=== PATIENT | female | born 1935 | race Caucasian/White ===

== ENCOUNTER 2019-09-19 13:02 | Observation (INO) | payer OTHER, SELFPAY ==
[2019-09-19] VITALS (8 sets, daily range): BP systolic 108–141; BP diastolic 54–83; PULSE 50–96; RESP 14–20; TEMP 37.3–38.7; O2SAT 93–98; BMI 29.0
--- NOTE | ~2019-09-19 | CT_ITS ---
EXAMINATION: CT brain wo con EXAM DATE: 09/19/2019 14:10 INDICATION: Altered mental status. Change in mental status. TECHNIQUE: Spiral CT of the head was performed without contrast. Axial, coronal and sagittal images were reviewed. The dose-length product (DLP) for this examination was 529.67 mGy-cm. The exposure w as tailored according to patient size, and iterative reconstruction (ASIR) was used as additional dos e reduction technique. Comparison is made to prior examination from 07/10/2018. FINDINGS: There is no acute intraparenchymal hemorrhage. No evidence of intraparenchymal brain mass lesion. No evidence of acute infarction. Please note that initial head CT has limited sensitivity f or small or acute infarctions. There is moderate periventricular and subcortical hypodensity, nonspec ific but probably related to small vessel ischemic disease. There is moderate prominence of the sul ci and ventricles related to cerebral atrophy. There is intracranial carotid arteriosclerosis. The re are no extra-axial collections. There is no mass effect or midline shift. The orbits are unremar kable. Soft tissue is unremarkable. The visualized sinuses and mastoid air cells are well aerated. IMPRESSION: 1. No acute intracranial findings. 2. Chronic age related findings. Reviewed, dictated and finalized at location B. NICIAN
--- NOTE | ~2019-09-19 | XR_ITS ---
EXAMINATION: XR chest 2V DATE: 09/19/2019 13:44 INDICATION: Fever TECHNIQUE: frontal and lateral views of the chest were obtained. COMPARISON: Chest radiograph dated 07/10/2018 FINDINGS: Skinfold projects over the lateral left lower lung zone. Elevation of the right hemidiaphragm. No foc al airspace opacities, pulmonary edema, pleural effusion or pneumothorax. The cardiomediastinal silho uette is normal. Cholecystectomy clips in the right upper quadrant. At least moderate bilateral gleno humeral osteoarthritis with a couple prominent loose osteochondral bodies at the right deep subscapul ar recess. IMPRESSION: 1. No acute cardiopulmonary disease. Reviewed, dictated and finalized at location A. EDURE WRITER
--- NOTE | 2019-09-19 13:04 | ED.AMS ---
HPI - Altered Mental Status General Chief Complaint: Fever Stated Complaint: AMS Time Seen by Provider: 09/19/19 13:02 Source: patient, family (pt's son) and RN notes reviewed Mode of arrival: EMS Limitations: no limitations History of Present Illness HPI narrative: Pt is a 84 y/o female who presents to the ED via EMS with c/o altered mental status. According to the pt's son, she last appeared normal around 23:00 yesterday evening. He notes that he came to check on the pt around 7 AM this morning, and states that she wasn't acting right and was slurring her speech. Pt's son notes that she vomited on herself while at home this morning. EMS states that the pt vomited again upon their arrival. They note that they subsequently gave the pt Zofran. Pt's son states that she is prescribed several chronic medications, but notes that she doesn't take any of them. She currently denies any cough, pain, weakness, or numbness/tingling. Her son notes that she isn't currently taking any blood thinners. MD complaint: altered mental status Onset (ago): hour(s) (6) Time: 07:00 Timing confirmed by: family member (pt's son) Associated symptoms: nausea/vomiting and other (slurred speech (per son)) Related Data Home Medications Medication Instructions Recorded Confirmed Unable to Obtain Home Medications 09/19/19 09/19/19 Allergies Allergy/AdvReac Type Severity Reaction Status Date / Time Penicillins Allergy Unknown Unknown Verified 06/21/18 09:14 pollen extracts Allergy Unknown Verified 09/02/11 15:43 Review of Systems Review of Systems: All systems reviewed & are unremarkable except as noted in HPI and below Constitutional: Constitutional: Denies weakness Respiratory: Respiratory: Denies cough Gastrointestinal: Gastrointestinal: Reports nausea and Reports vomiting Neurologic: Reports Abnormal speech present (slurred speech (per son)), Denies numbness and Denies tingling PMFSH Past Medical History Medical History Arthritis Asthma Back pain Cataracts, bilateral CHF (congestive heart failure) Diabetes DVT (deep venous thrombosis) Eczema Esophageal stricture Gastric ulcer GERD (gastroesophageal reflux disease) GI bleed History of rectal polyps HTN (hypertension) Hypothyroidism Kidney stones Psoriasis Restless leg syndrome Seizures Shingles UTI (urinary tract infection) Surgical History Surgical History Hx of cholecystectomy Hx of hysterectomy Hx of right breast biopsy Hx of tonsillectomy Family History Family History (Updated 07/19/18 @ 09:40 by DOCTOR UNKNOWN) Father Asthma Social History Social History Smoking status: Never smoker Alcohol intake: current Comments PCP is Dr. Sherman. Exam Narrative: Exam Narrative: General appearance: Well-developed, well-nourished Skin: Normal color extensive eczema dorsal sides of hands, multiple sores on the lower extremity bilaterally surrounded by slight erythema, warm to touch and diffusely tender. Cellulitis is a concern. Head: Normocephalic, nontraumatic Eyes: Clear conjunctiva ENT: Oropharynx normal, ears normal, nose normal Neck: Supple, nontender Chest and respiratory: Airway patent, no respiratory distress, no accessory muscle use Heart: Regular rate/rhythm Abdomen: Soft, nontender, no organomegaly, quiet bowel sounds Vascular: Normal peripheral pulses, normal capillary refill. Musculoskeletal: Normal range of motion, nontender back Neurologic: Alert and oriented ?3, LITERACY COACH is normal as tested, no gross motor deficit Course Cou
--- NOTE | 2019-09-19 13:18 | ECG_ITS ---
Measurements Intervals [place] Rate: 97 P: 31 OK: 187 QRS: -22 QRSD: 108 T: 55 QT: 355 QTc: 453 Interpretive Statements SINUS RHYTHM FREQUENT ATRIAL PREMATURE COMPLEXES VOLTAGE CRITERIA FOR LVH BORDERLINE R WAVE PROGRESSION, ANTERIOR LEADS INFERIOR INFARCT, AGE INDETERMINATE BORDERLINE ST-T WAVE ABNORMALITY- LATERAL LEADS BASELINE ARTIFACT- I, II, III, AVF ABNORMAL ECG Electronically Signed On 09-19-2019 14:25:13 [employer] by Morgan Garcia D.O.
[2019-09-19 13:47] LABS: Hemoglobin 10.8 g/dL (12.0-15.0); Mean Corpuscular HGB Conc 30.9 g/dl (32-36); Mean Corpuscular Hemoglobin 24.4 pg (26-34); Mean Platelet Volume 11.7 fl (7.4-10.4); Platelet Count Result 308 k/mm3 (150-375); Red Blood Count 4.43 M/mm3 (4.2-5.4); Red Cell Distribution Width 15.7 % (11.5-14.5); White Blood Count 20.7 K/mm3 (4.5-10.0)
[2019-09-19 13:49] LABS: Add Urine Microscopic? NO; Appearance Urine Clear (Clear); Bilirubin Urine Negative (Negative); Blood Urine Negative (Negative); Color Urine Yellow (Yellow); Glucose Urine UA Negative (Negative); Ketones Urine Negative (Negative); Leukocyte Esterase Ur Negative LEU/UL (Negative); Nitrate Urine Negative (Negative); Protein Urine Negative (Negative); Specific Grav Ur 1.018 (1.001-1.035); Urobilinogen Urine Negative mg/dL (<2.0)
[2019-09-19 13:59] LABS: Band Neutrophils Percent 1 % (0-6); Large Platelets Present; Lymphocytes Absolute Manual 0.41 K/mm3 (1.1-4.5); Monocytes Absolute Manual 3.31 K/mm3 (0.1-0.90); Monocytes Percent Manual 16 % (3-9); Neutrophils Absolute Manual 16.97 K/mm3 (1.7-7.2); Neutrophils Percent Manual 81 % (46-73); Platelet Estimate Adequate (Adequate); Total Cells Counted 100
[2019-09-19 14:01] LABS: Alanine Aminotransferase 14 U/L (4-35); Albumin Level 3.3 g/dL (3.5-5.1); Alkaline Phosphatase 78 U/L (38-126); Aspartate Amino Transferase 20 U/L (14-36); Bilirubin,Total 0.4 mg/dL (0.2-1.3); Blood Urea Nitrogen 18 mg/dL (7-17); CRP 4.6 mg/dL (<1.0); Calcium 8.5 mg/dL (8.4-10.2); Carbon Dioxide 22 mmol/L (22-30); Chloride 102 mmol/L (98-107); Estimated Glomerular Filt Rate > 60; Glucose 168 mg/dL (65-105); INR 1.3; Potassium 3.7 mmol/L (3.4-5.0); Prothrombin Time 15.7 Seconds (11.1-14.7); Sodium 137 mmol/L (137-145)
[2019-09-19 14:03] LABS: Partial Thromboplastin Time 32.1 SECONDS (22.3-36.8)
[2019-09-19] MEDS: SODIUM CHLORIDE 0.9% IV 1,000 ML 999 ML IV CONT (14:25)
[2019-09-19] MEDS: ACETAMINOPHEN 325 MG TABLET 650 MG PO ×2 (14:25→22:02)
--- NOTE | 2019-09-19 16:16 | PC.NURSE ---
Pt unsure of the names of her Rx. Called her pharmacy. She had Levothyroxine 100mcg ready to be picked up on February 22, 2019 and she never picked it up. There is also Atorvastatin 40mg ready for pickup. The son said she has a whole list of Rx, but doesn't take any of them.
--- NOTE | 2019-09-19 16:33 | PC.NURSE ---
Daughter Ana Maria Beltran [phone] Son-in-law Hao Beltran [phone]
--- NOTE | 2019-09-19 16:35 | ADMGEN ---
This patient, Anna Zavala, was admitted to 3 Med Surg Room 307-02. Patient/family oriented to hospital policies and general routines including ID bracelet, bed and alarms, visiting hours, pain management, procedures, bathroom and other care routines, personal items, smoking policy, room service/diet, and visiting hours. Valuables list has been completed. Information on how to activate the Rapid Response Team has been discussed. Patient/Family are encouraged to report perceived risks to care and to ask questions if they do not understand what they are told or what they should do.
--- NOTE | 2019-09-19 16:48 | PM.IMHP ---
H&P: HPI History of Present Illness Chief complaint: Fever, confusion. Narrative: Anna Zavala is a 84 year old female with history of diabetes, hypothyroidism, GERD with history of peptic ulcers, hypertension, and history of CVA presented to the emergency department earlier this morning via EMS from home for evaluation of fever and altered mental status. It should be noted that the patient has been noncompliant with her home medications, and has not had any prescriptions filled since February 2019. In any regard, she seemed to be in her usual state of health when she went to bed last night at approximately 23:00. Son woke up at about 07:00 and at that time she was ?not acting right? with slurred speech and confusion. Patient tells me that she was extraordinarily weak upon waking, and was feeling lightheaded and dizzy when she went to stand up. She then developed nausea and proceeded to have several episodes of emesis.She was febrile on arrival to the emergency department with a temperature of 101.2?. With further questioning, she does mention having a mild cough however it is nonproductive. Other than that she has no complaints except as detailed above. She denies headache, neck ache, sinus congestion, rhinorrhea, otalgia, and odynophagia. No chest pain or shortness of breath. She has not had any further nausea or vomiting since arrival to the hospital. She denies diarrhea. No dysuria, urgency, or hesitancy. On exam, she was noted to have findings of eczema of both hands with excoriation, also noted on the left lower leg. This is a chronic finding for the patient which she treats with calamine lotion. She denies pain at the sites. 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 Diastolic dysfunction On echocardiogram in July 2018. Ejection fraction was 57%. DVT (deep venous thrombosis) Eczema Esophageal stricture GERD (gastroesophageal reflux disease) GI bleed In June 2015 secondary to acute gastric and duodenal ulcers. She is followed by Dr. Holder. History of rectal polyps HTN (hypertension) Hypothyroidism Kidney stones Peptic ulcer History of peptic and duodenal ulcer. Psoriasis Restless leg syndrome Seizures Suspected partial seizure at the time of CVA in July 2018. Shingles Type 2 diabetes mellitus Surgical History Surgical History Hx of cholecystectomy Hx of hysterectomy Hx of right breast biopsy Hx of tonsillectomy Family History Family History Father Asthma Social History Social History (Updated 09/20/19 @ 00:55 by Leslie Zhu PA-C) Social History: The patient lives in [place] and says she is living with her granddaughter. Her son, Marcin, and daughter, Ana Maria, are her surrogate decision makers. She is listed as a full code. No alcohol, tobacco, or drug abuse. Meds Home Medications and Allergies Home Medications Medication Instructions Recorded Confirmed Type Unable to Obtain Home Medications 09/19/19 09/19/19 History Allergies Allergy/AdvReac Type Severity Reaction Status Date / Time Penicillins Allergy Unknown Unknown Verified 06/21/18 09:14 pollen extracts Allergy Unknown Verified 09/02/11 15:43 Vital Signs Vital Signs - 24 hr 09/19/19 13:05 09/19/19 15:34 09/19/19 15:38 Temperature 101.2 F H 99.8 F H 99.8 F H Pulse Rate 93 90 Respiratory Rate 20 20 Blood Pressure 136/54 L 141/54 H Pulse Oximetry 95 97 Exam Narrative: Exam Narrative: General: A well-developed, well-nourished, mildly ill-appearing elderly female asleep supine in bed in no acute distress. She arouses easily
[2019-09-19] MEDS: LACTATED RINGERS 1,000 ML 100 ML IV CONT (17:17)
[2019-09-20] MEDS: LACTATED RINGERS 1,000 ML 75 ML IV CONT (04:27)
[2019-09-20 06:00] VITALS: BP 144/87; PULSE 74; RESP 18; TEMP 37.4; O2SAT 99
[2019-09-20 06:34] LABS: Basophils Absolute Auto 0.1 K/mm3 (0.0-0.1); Basophils Percent Auto 0.4 % (0.2-1.2); Eosinophils Absolute Auto 0.2 K/mm3 (0-0.3); Eosinophils Percent Auto 1.4 % (0-4.4); Hematocrit 32.1 % (37.0-47.0); Hemoglobin 9.7 g/dL (12.0-15.0); Immature Granulocyte Absolute 0.07 K/mm3 (0.00-0.031); Immature Granulocyte Percent A 0.5 % (0-0.5); Lymphocytes Absolute Auto 0.71 K/mm3 (0.9-3.2); Lymphocytes Percent Auto 5.1 % (18.3-44.2); Mean Corpuscular HGB Conc 30.2 g/dl (32-36); Mean Corpuscular Hemoglobin 24.3 pg (26-34); Mean Corpuscular Volume 80.3 fl (80-100); Mean Platelet Volume 12.4 fl (7.4-10.4); Monocytes Absolute Auto 1.5 K/mm3 (0.1-0.6); Monocytes Percent Auto 10.5 % (2.6-8.5); Neutrophils Absolute Auto 11.5 K/mm3 (1.3-6.7); Neutrophils Percent Auto 82.1 % (45.5-73.1); Platelet Count Result 258 k/mm3 (150-375); Red Cell Distribution Width 15.9 % (11.5-14.5); White Blood Count 14.1 K/mm3 (4.5-10.0)
[2019-09-20 06:49] LABS: Alanine Aminotransferase 13 U/L (4-35); Albumin Level 2.8 g/dL (3.5-5.1); Alkaline Phosphatase 59 U/L (38-126); Aspartate Amino Transferase 24 U/L (14-36); Bilirubin,Total 0.5 mg/dL (0.2-1.3); Blood Urea Nitrogen 16 mg/dL (7-17); Carbon Dioxide 25 mmol/L (22-30); Chloride 101 mmol/L (98-107); Estimated CRCL calculation 47 ml/min; Estimated Glomerular Filt Rate > 60; Glucose 116 mg/dL (65-105); Potassium 3.4 mmol/L (3.4-5.0); Sodium 138 mmol/L (137-145)
[2019-09-20 07:00] LABS: Iron < 10 ug/dL (37-170)
[2019-09-20 07:09] LABS: Hemoglobin A1C 6.6 % (<5.7)
[2019-09-20 07:22] LABS: Percent Iron Saturation < 3 % (20-50)
[2019-09-20 08:18] LABS: Glucose Point of Care 119 (65-105)
[2019-09-20 08:19] LABS: Glucose Point of Care 116 (65-105)
[2019-09-20] MEDS: POTASSIUM CHLORIDE 20 MEQ TABLET 40 MEQ PO (09:15)
[2019-09-20 09:31] LABS: Folic Acid 6.8 ng/mL (2.76->20)
[2019-09-20] MEDS: IRON SUCROSE COMPLEX 500 MG in SODIUM CHLORIDE 0.9% IV 250 ML 78.6 MG IVPB (09:49)
[2019-09-20 12:04] LABS: Glucose Point of Care 176 (65-105)
[2019-09-20 14:00] VITALS: BP 132/53; PULSE 62; RESP 16; TEMP 36.4; O2SAT 91
--- NOTE | 2019-09-20 15:57 | PM.IMPN ---
Progress Note: A&P Assessment and Plan (1) Systemic inflammatory response syndrome: Code(s): R65.10 - Systemic inflammatory response syndrome (SIRS) of non-infectious origin without acute organ dysfunction Status: Acute Assessment and Plan: With fever and leukocytosis. Etiology is not entirely clear; possible viral syndrome given lack of other findings. Influenza was negative vs possible developing a cellulitis of the left lower leg, but is difficult to say at this juncture. This appears to be improving per patient. She was empirically started on broad-spectrum antibiotics in the emergency department, will continue with this pending blood cultures. Consider PO antibiotics pending BC results (2) Microcytic anemia: Code(s): D50.9 - Iron deficiency anemia, unspecified Status: Acute Assessment and Plan: Low iron and %saturation IV venofer given today consider daily iron Monitor. Transfuse as needed (3) Type 2 diabetes mellitus: Code(s): E11.9 - Type 2 diabetes mellitus without complications Status: Acute Assessment and Plan: BGL 100s today. A1c 6.6 For now will initiate sliding scale insulin, Accu-Cheks, and hypoglycemic protocol Will likely need prompt follow up with PCP for further management (4) Confusion: Code(s): R41.0 - Disorientation, unspecified Status: Acute Assessment and Plan: Likely due to fever. It appears this has resolved.No evidence to suggest encephalitis or the like. Will continue neurologic checks. Subjective Date/time seen: 09/20/19 15:57 Interval history: Patient is a 84 yo F with history of diabetes, hypothyroidism, GERD with history of peptic ulcers, hypertension, and history of CVA who is here for possible treatment of cellulitis of left lower extremity vs other underlying infection. Patient is doing much better today. She states she is less confused; she is A&Ox4 today as well. She complained of left lower leg redness and warmth, but states this has improved. Otherwise patient has no other complaints. Denies f/c/ns, headaches, dizziness, lightheadedness, changes in v/h, cp/palpitations, sob/cough, n/v/d/c, abd pain, dysphagia, melena, brbpr, dysuria, hematuria, cloudy urine, calf pain/swelling, s/sx of stroke Review of Systems Review of Systems: All systems reviewed & are unremarkable except as noted in HPI and below Exam Narrative: Exam Narrative: Patient sitting upright in chair at time of visit Const: General: comfortable, no acute distress, well developed and alert Nutritional Appearance: well nourished Orientation/consciousness: patient oriented x3 HENMT: Head: normocephalic and atraumatic Ears: external ears normal General nose exam: Normal nares present Face and sinus: face symmetric Mouth: Yes moist mucous membranes Teeth and gingiva: dentures Throat: posterior oropharynx normal and uvula midline Eyes: General: appearance normal, both eyes and all related structures Sclera: sclerae normal Pupils: Equal, round and reactive pupils present EOM: EOMs intact bilaterally Neck: Neck: trachea midline and supple Resp: Effort & Inspection: normal respiratory effort Auscultation: clear to auscultation bilaterally Cardio: Rate: regular rate Rhythm: regular rhythm Heart sounds: no murmurs GI: Inspection: non-distended GI Palp: No abdominal tenderness Auscultation: normal bowel sounds and normoactive bowel sounds Skin: General skin exam: normal color and no rashes or lesions noted Neuro: General: patient oriented x3 and no focal motor deficits Motor exam (neuro): 5/5 motor strength present throughout Extrem: Right lower extremity: edema Left lower extremity: edema Other: Left lower leg, distal scabbing noted. surrounding erythema and warmth noted. Slig
[2019-09-20 17:45] LABS: Glucose Point of Care 119 (65-105)
[2019-09-20 22:00] VITALS: BP 117/38; PULSE 84; RESP 20; TEMP 37.4; O2SAT 91
[2019-09-21] MEDS: LACTATED RINGERS 1,000 ML 75 ML IV CONT (00:52)
[2019-09-21 06:00] VITALS: BP 118/52; PULSE 75; RESP 24; TEMP 36.6; O2SAT 95
[2019-09-21 06:34] LABS: Basophils Absolute Auto 0.1 K/mm3 (0.0-0.1); Basophils Percent Auto 0.4 % (0.2-1.2); Eosinophils Absolute Auto 0.7 K/mm3 (0-0.3); Eosinophils Percent Auto 6.1 % (0-4.4); Hematocrit 29.4 % (37.0-47.0); Immature Granulocyte Percent A 0.9 % (0-0.5); Lymphocytes Percent Auto 8.8 % (18.3-44.2); Mean Corpuscular HGB Conc 30.6 g/dl (32-36); Mean Corpuscular Hemoglobin 24.1 pg (26-34); Mean Corpuscular Volume 78.8 fl (80-100); Mean Platelet Volume 12.2 fl (7.4-10.4); Monocytes Absolute Auto 1.3 K/mm3 (0.1-0.6); Monocytes Percent Auto 11.1 % (2.6-8.5); Neutrophils Absolute Auto 8.3 K/mm3 (1.3-6.7); Neutrophils Percent Auto 72.7 % (45.5-73.1); Platelet Count Result 230 k/mm3 (150-375); Red Blood Count 3.73 M/mm3 (4.2-5.4); White Blood Count 11.4 K/mm3 (4.5-10.0)
[2019-09-21 06:56] LABS: Blood Urea Nitrogen 12 mg/dL (7-17); Calcium 7.9 mg/dL (8.4-10.2); Carbon Dioxide 25 mmol/L (22-30); Chloride 105 mmol/L (98-107); Estimated CRCL calculation 47 ml/min; Estimated Glomerular Filt Rate > 60; Glucose 110 mg/dL (65-105); Magnesium 1.5 mg/dL (1.6-2.3); Potassium 3.3 mmol/L (3.4-5.0); Sodium 136 mmol/L (137-145)
[2019-09-21 08:02] LABS: Glucose Point of Care 120 (65-105)
[2019-09-21] MEDS: MAGNESIUM SULF 2 GM/WATER 50ML 2 GM/50 ML BAG IVPB (08:07)
[2019-09-21] MEDS: ACETAMINOPHEN 325 MG TABLET 650 MG PO ×2 (09:47→22:22)
[2019-09-21 10:27] VITALS: O2SAT 93
[2019-09-21 12:15] LABS: Glucose Point of Care 191 (65-105)
--- NOTE | 2019-09-21 13:09 | PM.IMPN ---
Progress Note: A&P Assessment and Plan (1) Systemic inflammatory response syndrome: Code(s): R65.10 - Systemic inflammatory response syndrome (SIRS) of non-infectious origin without acute organ dysfunction Status: Acute Assessment and Plan: With fever and leukocytosis. Etiology is not entirely clear; possible viral syndrome given lack of other findings. Influenza was negative vs possible developing a cellulitis of the left lower leg; this is clinically improving. She was empirically started on broad-spectrum antibiotics in the emergency department; will d/c these as BC negative Patient is allergic to penicillins but no reaction to Rocephin on previous two doses. Will start Cefdinir tonight and plan on discharge on this. Observe for improvement overnight and monitor leukocytosis Consider discharge tomorrow if still showing improvement. (2) Microcytic anemia: Code(s): D50.9 - Iron deficiency anemia, unspecified Status: Acute Assessment and Plan: Low iron and %saturation IV venofer given yesterday Start daily iron pill Monitor Transfuse as needed Follow up with PCP (3) Type 2 diabetes mellitus: Code(s): E11.9 - Type 2 diabetes mellitus without complications Status: Acute Assessment and Plan: BGL 100s today. A1c 6.6 For now will continue sliding scale insulin, Accu-Cheks, and hypoglycemic protocol Follow up with PCP for further management (4) Confusion: Code(s): R41.0 - Disorientation, unspecified Status: Acute Assessment and Plan: Likely due to fever. It appears this has resolved.No evidence to suggest encephalitis or the like. Will continue neurologic checks. Subjective Date/time seen: 09/21/19 13:09 Interval history: Patient is a 84 yo F with history of diabetes, hypothyroidism, GERD with history of peptic ulcers, hypertension, and history of CVA who is here for possible treatment of cellulitis of left lower extremity vs other underlying infection. Patient is doing well today. At time of visit, patient is lethargic, but easily arousable and able to answer my questions; A&Ox4. She states her swelling is still there but thinks the redness and warmth are improving. She has no other complaints. Denies f/c/ns, headaches, dizziness, lightheadedness, changes in v/h, cp/palpitations, sob/cough, n/v/d/c, abd pain, dysphagia, melena, brbpr, dysuria, hematuria, cloudy urine, calf pain, s/sx of stroke Review of Systems Review of Systems: All systems reviewed & are unremarkable except as noted in HPI and below Exam Narrative: Exam Narrative: Patient lying supine in bed, sleeping, but easily arousable and able to answer questions. Const: General: comfortable, no acute distress and well developed Nutritional Appearance: well nourished Orientation/consciousness: patient oriented x3 HENMT: Head: normocephalic and atraumatic Ears: external ears normal General nose exam: Normal nares present Face and sinus: face symmetric Mouth: Yes moist mucous membranes Teeth and gingiva: dentures Throat: posterior oropharynx normal and uvula midline Eyes: General: appearance normal, both eyes and all related structures Sclera: sclerae normal Pupils: Equal, round and reactive pupils present EOM: EOMs intact bilaterally Neck: Neck: trachea midline and supple Resp: Effort & Inspection: normal respiratory effort Auscultation: clear to auscultation bilaterally Cardio: Rate: regular rate Rhythm: regular rhythm Heart sounds: no murmurs GI: Inspection: non-distended GI Palp: No abdominal tenderness and Yes Soft to palpation Auscultation: normal bowel sounds and normoactive bowel sounds Skin: General skin exam: normal color Neuro: General: patient oriented x3 and no focal motor deficits Cranial nerves: Yes Equ
[2019-09-21 14:00] VITALS: BP 128/52; PULSE 67; RESP 18; TEMP 36.3; O2SAT 100
--- NOTE | 2019-09-21 15:57 | PCPTNOTE ---
The patient treatment was not able to be completed today. Will plan to continue treatment per plan of care.
[2019-09-21 17:44] LABS: Glucose Point of Care 177 (65-105)
[2019-09-21] MEDS: CEFDINIR 300 MG CAPSULE PO (20:36)
[2019-09-21 21:59] LABS: Glucose Point of Care 118 (65-105)
[2019-09-21 22:09] VITALS: BP 137/52; PULSE 72; RESP 16; TEMP 36.6; O2SAT 100
[2019-09-22 06:00] VITALS: BP 114/51; PULSE 69; RESP 20; TEMP 36.6; O2SAT 96
[2019-09-22 06:45] LABS: Basophils Absolute Auto 0.1 K/mm3 (0.0-0.1); Basophils Percent Auto 0.5 % (0.2-1.2); Eosinophils Percent Auto 10.1 % (0-4.4); Hematocrit 29.6 % (37.0-47.0); Hemoglobin 9.1 g/dL (12.0-15.0); Immature Granulocyte Percent A 1.1 % (0-0.5); Lymphocytes Absolute Auto 1.17 K/mm3 (0.9-3.2); Lymphocytes Percent Auto 12.5 % (18.3-44.2); Mean Corpuscular HGB Conc 30.7 g/dl (32-36); Mean Corpuscular Hemoglobin 24.3 pg (26-34); Mean Corpuscular Volume 78.9 fl (80-100); Mean Platelet Volume 11.7 fl (7.4-10.4); Monocytes Percent Auto 10.9 % (2.6-8.5); Neutrophils Absolute Auto 6.1 K/mm3 (1.3-6.7); Neutrophils Percent Auto 64.9 % (45.5-73.1); Platelet Count Result 255 k/mm3 (150-375); Red Blood Count 3.75 M/mm3 (4.2-5.4); White Blood Count 9.4 K/mm3 (4.5-10.0)
[2019-09-22 07:00] LABS: Blood Urea Nitrogen 12 mg/dL (7-17); Calcium 8.1 mg/dL (8.4-10.2); Carbon Dioxide 25 mmol/L (22-30); Chloride 106 mmol/L (98-107); Estimated CRCL calculation 54 ml/min; Estimated Glomerular Filt Rate > 60; Glucose 118 mg/dL (65-105); Magnesium 1.8 mg/dL (1.6-2.3); Potassium 3.6 mmol/L (3.4-5.0); Sodium 139 mmol/L (137-145)
[2019-09-22 08:01] LABS: Glucose Point of Care 107 (65-105)
[2019-09-22] MEDS: FERROUS SULFATE 324 MG TABLET PO (09:07)
[2019-09-22] MEDS: CEFDINIR 300 MG CAPSULE PO (09:07)
--- NOTE | 2019-09-22 09:11 | PM.DS ---
DS: Diagnosis Admitting Diagnosis Admitting Diagnosis: Systemic inflammatory response syndrome (SIRS) of non-infectious origin without acute organ dysfunction Discharge Diagnosis (1) Systemic inflammatory response syndrome: Code(s): R65.10 - Systemic inflammatory response syndrome (SIRS) of non-infectious origin without acute organ dysfunction Status: Acute Assessment and Plan: With fever and leukocytosis without being able to determine if there is infectious cause. Etiology is not entirely clear; possible viral syndrome given lack of other findings. Influenza was negative vs possible developing a cellulitis of the left lower leg; this is clinically improving. WBC 9.4K today. Patient is feeling better She was empirically started on broad-spectrum antibiotics in the emergency department; will d/c these as BC negative Patient is allergic to penicillins but no reaction to Rocephin on previous two doses. Will continue Cefdinir at discharge for empiric treatment for possible cellulitis as WBC improved. Unable to determine if infectious cause Discharge home on 09/22 (2) Microcytic anemia: Code(s): D50.9 - Iron deficiency anemia, unspecified Status: Acute Assessment and Plan: Low iron and %saturation IV venofer given earlier in stay Continue daily iron pill Follow up with PCP (3) Type 2 diabetes mellitus: Code(s): E11.9 - Type 2 diabetes mellitus without complications Status: Acute Assessment and Plan: BGL 100s today. A1c 6.6 Follow up with PCP for further management (4) Confusion: Code(s): R41.0 - Disorientation, unspecified Status: Acute Assessment and Plan: Likely due to fever vs possible infection. Resolved. No evidence to suggest encephalitis or the like. DS: Summary Hospital Course Reason for hospitalization: SIRS; confusion; possible cellulitis LLE vs LLE edema Hospital Course: Patient is a 84 yo F with history of diabetes, hypothyroidism, GERD with history of peptic ulcers, hypertension, and history of CVA presented to the emergency department earlier on 09/19 via EMS from home for evaluation of fever and altered mental status. Patient was noted to be non-compliant with her home medications and had no prescriptions filled since 02/2019. She was in her usual state of health when she woke up on morning of 09/19 and noted by her son not acting right with slurred speech and confusion; patient also noted to be weak, lightheaded/dizzy whne standing, and had several episodes of n/c. She was noted to be febrile while in the ER with a temp of 101.2. Please see H&P for further details Presenting VS: BP 136/54, HR 93, RR 20, temp 101.2, sat 95% RA Presenting Pertinent labs: WBC 20.7 (09/22 9.4), H&H 10.8/35.0, MCV 79.0, PT 15.7, LA 2.0, CRP 4.6, vitamin B12 348, iron <10, TIBC 319, %sat <3, ferritin 28. CMP, CBC, coags, folate, UA otherwise unremarkable. Micro: none Imagin/10 CXR IMPRESSION: 1. No acute cardiopulmonary disease. 09/[address] IMPRESSION: 1. No acute intracranial findings. 2. Chronic age related findings. ECG: Interpretive Statements SINUS RHYTHM FREQUENT ATRIAL PREMATURE COMPLEXES VOLTAGE CRITERIA FOR LVH BORDERLINE R WAVE PROGRESSION, ANTERIOR LEADS INFERIOR INFARCT, AGE INDETERMINATE BORDERLINE ST-T WAVE ABNORMALITY- LATERAL LEADS BASELINE ARTIFACT- I, II, III, AVF ABNORMAL ECG Patient was admitted to the hospitalist service for further evaluation of confusion and meeting SIRS criteria with possible LLE cellulitis. Patient was started on broad spectrum antibiotics for treatment of possible infection of LLE; by time of admission, her LLE swelling/redness had already begun to improve and it was difficult to say if this was a true infection. Despite this, her antibiotic regimen continued a
[2019-09-22] MEDS: POTASSIUM CHLORIDE 20 MEQ TABLET 40 MEQ PO (09:49)
--- NOTE | 2019-09-22 10:39 | P.CDI_ITS ---
CDI Query Clarification Request -SIRS due to non infectious cause has been documented and Etiology is not entirely clear; possible viral syndrome given lack of other findings. Influenza was negative vs possible developing a cellulitis of the left lower leg; this is clinically improving. - Will continue Cefdinir at discharge for empiric treatment for possible cellulitis as WBC improved has been documented. Please clarify diagnosis: * SIRS due to non infectious cause * Sepsis (SIRS due to infectious cause) * Unable to determine
[2019-09-22 11:12] LABS: Glucose Point of Care 115 (65-105)
--- NOTE | 2019-09-22 13:41 | PC.NURSE ---
Discharged home with son, awake, alert, and oriented times four, no complaints. Left with discharge paperwork and personal affects. PCT escorted out to [facility] in wheelchair.
== END 2019-09-22 13:48 | disposition home or self-care (01) ==
LOC: ANHED 15:54 → ANH3MEDSUR 16:49
PROVIDERS: Physician Assistant; Admitting Provider Family Medicine; Emergency Provider Emergency Medicine; PCP Internal Medicine; Visit Provider Family Medicine
DX: R41.0 Disorientation, unspecified (principal); R65.10 Systemic inflammatory response syndrome (SIRS) of non-infectious origin without acute organ dysfunction; D50.9 Iron deficiency anemia, unspecified; E11.9 Type 2 diabetes mellitus without complications; I10 Essential (primary) hypertension; E03.9 Hypothyroidism, unspecified; K21.9 Gastro-esophageal reflux disease without esophagitis; Z87.11 Personal history of peptic ulcer disease; Z86.73 Personal history of transient ischemic attack (TIA), and cerebral infarction without residual deficits; Z88.0 Allergy status to penicillin; Z91.14 Patient's other noncompliance with medication regimen; Z86.718 Personal history of other venous thrombosis and embolism
CPT/HCPCS: 36415; 51701; 70450; 71046; 80048; 80053; 81003; 82607; 82728; 82746; 83036; 83540; 83550; 83605; 83735; 84443; 85025; 85610; 85730; 86140; 87040; 87804; 93005; 96361; 96365; 96366; 96367; 96375; 97110; 97116; 97161; 97165; 97530; 97535; 99285; A9270; G0378; J0696; J1756; J2543; J3370; J3475; J7030; J7050; J7120

== ENCOUNTER 2019-09-24 17:47 | Emergency (ER) | payer OTHER, SELFPAY ==
--- NOTE | 2019-09-24 17:51 | ED.GENADULT ---
HPI - General Adult General Chief complaint: Skin/Abscess/Foreign Body Stated complaint: L/leg Swollen/Infection Time Seen by Provider: 09/24/19 17:51 Source: patient Mode of arrival: ambulatory Limitations: no limitations History of Present Illness HPI narrative: 84-year-old female patient presents to the [facility] with complaints of left leg swelling. Patient states that she was discharged from [facility] 2 days ago and was diagnosed with cellulitis that left leg. Patient states that she was sent home on antibiotics for the infection. Patient states that her left leg and foot continues to swell and states they are becoming more painful and wanted to come and get them checked out. Denies any chest pain, shortness of breath, abdominal pain, nausea, vomiting or diarrhea. Denies any fevers that she is aware of. Patient states she has been elevating the foot on a recliner. Patient states that she has not yet followed up with her primary doctor since being released from the hospital. Related Data Allergies Allergy/AdvReac Type Severity Reaction Status Date / Time Penicillins Allergy Unknown Unknown Verified 06/21/18 09:14 pollen extracts Allergy Unknown Verified 09/02/11 15:43 Review of Systems Review of Systems: Narrative: CONSTITUTIONAL: Denies fever, chills, or sweats. EYES: Denies visual changes, redness, or discharge. ENT: Denies rhinorrhea, congestion, sore throat, or otalgia. CARDIOVASCULAR: Denies chest pain, palpitations, or edema. RESPIRATORY: Denies cough or dyspnea. GASTROINTESTINAL: Denies abdominal pain, nausea, vomiting, or diarrhea. GENITOURINARY: Denies dysuria or hematuria. SKIN: Denies rash or itching. MUSCULOSKELETAL: Denies back pain, joint pain, or myalgia. Positive left lower foot and leg swelling NEUROLOGIC: Denies headache, numbness, or weakness. PSYCHIATRIC: Denies anxiety or depression. 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 Diastolic dysfunction On echocardiogram in July 2018. Ejection fraction was 57%. DVT (deep venous thrombosis) Eczema Esophageal stricture GERD (gastroesophageal reflux disease) GI bleed In June 2015 secondary to acute gastric and duodenal ulcers. She is followed by Dr. Holder. History of rectal polyps HTN (hypertension) Hypothyroidism Kidney stones Peptic ulcer History of peptic and duodenal ulcer. Psoriasis Restless leg syndrome Seizures Suspected partial seizure at the time of CVA in July 2018. Shingles Type 2 diabetes mellitus Social History Social History (Updated 09/20/19 @ 00:55 by Leslie Zhu PA-C) Social History: The patient lives in [place] and says she is living with her granddaughter. Her son, Marcin, and daughter, Ana Maria, are her surrogate decision makers. She is listed as a full code. No alcohol, tobacco, or drug abuse. Exam Narrative: Exam Narrative: GENERAL: Well-appearing, well-nourished, and in no acute distress. HEAD: Normocephalic, atraumatic. EYES: PERRLA and EOMI. ENT: Nares clear, no rhinorrhea or epistaxis. Mucous membranes moist. NECK: Supple. No lymphadenopathy CHEST: Clear to auscultation. No respiratory distress. HEART: Regular rate and rhythm. murmur heard noted on auscultation. Normal peripheral pulses. ABDOMEN: Soft, nontender, nondistended, normal active bowel sounds. EXTREMITIES: Normal range of motion. Patient has 3+ edema noted to the left foot. There is no obvious redness, warmth at this time. Not complaining of any pain behind the calf or the knee. SKIN: Warm, dry, no rash. NEURO: No focal deficits. Alert and oriented x3. Course Vital Signs Vital signs: Vital Signs Temperature 37.3 C 09/24/19 18:02 Pulse Rate 86 09/24/19 18:02 Respiratory Rate 16 09/24/19 18:02 Blood Pressure 137/67 09/24/19 18:02 Pulse Oximetry 98 02
[2019-09-24 18:02] VITALS: BP 137/67; PULSE 86; RESP 16; TEMP 37.3; O2SAT 98
== END 2019-09-24 18:23 | disposition home or self-care (01) ==
PROVIDERS: Emergency Provider Nurse Practitioner Family; PCP Internal Medicine
DX: L03.116 Cellulitis of left lower limb (principal); M79.89 Other specified soft tissue disorders; M19.90 Unspecified osteoarthritis, unspecified site; J45.909 Unspecified asthma, uncomplicated; Z86.73 Personal history of transient ischemic attack (TIA), and cerebral infarction without residual deficits; Z86.718 Personal history of other venous thrombosis and embolism; K21.9 Gastro-esophageal reflux disease without esophagitis; I10 Essential (primary) hypertension; E03.9 Hypothyroidism, unspecified; E11.9 Type 2 diabetes mellitus without complications; G25.81 Restless legs syndrome
CPT/HCPCS: 99211; G0463

== ENCOUNTER 2021-03-29 16:33 | Emergency (ER) | payer OTHER, SELFPAY ==
--- NOTE | ~2021-03-29 | XR_ITS ---
XR wrist RT min 3V DATE: 03/29/2021 19:17 INDICATION: Fall today. Generalized wrist pain, wrist swelling TECHNIQUE: 4 views COMPARISON: 07/11/2018 right forearm FINDINGS: Diffuse osteopenia. Subtle chondrocalcinosis of the triangular cartilage. There is osteoarthritis at the triscaphe and to a greater extent first carpometacarpal joints. There is prominent osteoarthritic change at the proximal interphalangeal joint of third digit. No fracture or dislocation, periosteal reaction or bone destruction is detected. IMPRESSION: Osteopenia Osteoarthritis No recent fracture or dislocation Reviewed, dictated and finalized at location A.
--- NOTE | ~2021-03-29 | XR_ITS ---
XR elbow RT min 3V DATE: 03/29/2021 19:47 INDICATION: Fall. Anterior elbow pain. TECHNIQUE: 4 views COMPARISON: 07/11/2018 right forearm FINDINGS: Mild dorsal spurring of the olecranon process. No recent fracture or dislocation, periosteal reaction or bone destruction. No elbow joint effusion i s evident. IMPRESSION: No recent fracture or dislocation or joint effusion Reviewed, dictated and finalized at location A.
--- NOTE | ~2021-03-29 | CT_ITS ---
EXAMINATION: CT brain wo con DATE: 03/29/2021 17:04 INDICATION: Fall. Head injury. Patient on anticoagulant therapy TECHNIQUE: Computed tomography (CT) of the head was performed without intravenous contrast. The mA wa s adjusted according to patient size. Iterative reconstruction technique was employed. Exam dose: 52 9.67 mGy-cm total exam DLP. COMPARISON: 11/18/2019 CT brain FINDINGS: There is cerebral atherosclerosis. There is nonspecific prominent diminished attenuation of the subcortical and periventricular cerebral white matter, which may be due to chronic small vessel ischemic changes. Central and cortical cerebral and cerebellar atrophy. No intracranial mass lesion or hemorrhage or cerebrovascular accident. No midline shift or mass effec t. No subdural or epidural hematoma. No fracture or bone destruction of the cranial vault. There is patchy soft tissue opacification of ethmoid air cells bilaterally. There is minimal focal soft tissue thickening of the sphenoid sinuses. The remaining included paranas al sinuses and mastoid air cells are unremarkable. IMPRESSION: No acute intracranial finding; no intracranial hemorrhage including subdural or epidural hematoma. There Reviewed, dictated and finalized at Location [facility]. Reviewed, dictated and finalized at location A. IMPRESSION: No acute intracranial finding; no intracranial hemorrhage includin g subdural or epidural hematoma. There
--- NOTE | ~2021-03-29 | CT_ITS ---
EXAMINATION: CT cervical spine wo con DATE: 03/29/2021 17:05 INDICATION: Fall. Head injury. TECHNIQUE: Computed tomography (CT) of the cervical spine was performed without intravenous contrast. Automated exposure control and iterative reconstruction technique were employed. Exam dose: 111.07 mGy-cm total exam DLP. COMPARISON: None FINDINGS: C1 and C2 are normally aligned and the odontoid process is intact. There is mild anterolisthesis at C4-5. The cervical spine is otherwise normally aligned. No fracture or dislocation or locked facet or prevertebral soft tissue swelling. There is moderate degenerative disc disease at C5-6 and severe degenerative disc disease at C6-7. The re is degenerative change at the apophyseal joints throughout the cervical spine and particularly pro minent uncovertebral joint spurring at C6-7.. IMPRESSION: Cervical spondylosis; no evidence of fracture Reviewed, dictated and finalized at [facility]. Reviewed, dictated and finalized at location A.
--- NOTE | ~2021-03-29 | XR_ITS ---
XR shoulder RT min 2V DATE: 03/29/2021 19:48 INDICATION: Fall. Proximal right arm pain TECHNIQUE: 4 views COMPARISON: None FINDINGS: There is prominent osteoarthritic change including prominent spurring spurring at the gleno humeral joint. Diffuse osteopenia. No fracture or dislocation, periosteal reaction or bone destruction. 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 IMPRESSION: Prominent osteoarthritis at the right glenohumeral joint Synovial osteochondromatosis of the right shoulder Osteopenia Reviewed, dictated and finalized at location A.
[2021-03-29 16:42] VITALS: BP 150/62; PULSE 75; RESP 16; TEMP 37; O2SAT 100
[2021-03-29 19:03] VITALS: BP 169/73; PULSE 74; RESP 16; O2SAT 99
[2021-03-29 19:59] VITALS: BP 157/71; PULSE 78; RESP 19; O2SAT 100
--- NOTE | 2021-03-29 20:07 | ED.GENADULT ---
HPI - General Adult General Chief complaint: Head Injury Stated complaint: fall/hi Time Seen by Provider: 03/29/21 18:58 History of Present Illness HPI narrative: Patient is an 86-year-old female with history of dementia who presents ER status post fall. Patient son reports that he was away from her for no more than 15 minutes. She had been sitting on her couch and when he returned she had fallen to the floor. Small cut to her right forehead. She is not any blood thinners. Patient is awake alert and oriented x1. She does report some discomfort to her right upper extremity but no obvious deformity. 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 Diastolic dysfunction On echocardiogram in July 2018. Ejection fraction was 57%. DVT (deep venous thrombosis) Eczema Esophageal stricture GERD (gastroesophageal reflux disease) GI bleed In June 2015 secondary to acute gastric and duodenal ulcers. She is followed by Dr. Holder. History of rectal polyps HTN (hypertension) Hypothyroidism Kidney stones Peptic ulcer History of peptic and duodenal ulcer. Psoriasis Restless leg syndrome Seizures Suspected partial seizure at the time of CVA in July 2018. Shingles Type 2 diabetes mellitus Surgical History Surgical History Hx of cholecystectomy Hx of hysterectomy Hx of right breast biopsy Hx of tonsillectomy Family History Family History Father Asthma Social History Social History (Updated 09/20/19 @ 00:55 by Leslie Zhu PA-C) Social History: The patient lives in [place] and says she is living with her granddaughter. Her son, Marcin, and daughter, Ana Maria, are her surrogate decision makers. She is listed as a full code. No alcohol, tobacco, or drug abuse. Exam Narrative: GENERAL: Well-appearing, well-nourished, and in no acute distress. HEAD: Normocephalic, small superficial abrasion right upper forehead near the hairline. Not amenable to repair. 5 mm in length. EYES: PERRLA and EOMI. CHEST: Clear to auscultation. No respiratory distress. HEART: Regular rate and rhythm. Normal peripheral pulses. ABDOMEN: Soft, nontender, nondistended, normal active bowel sounds. EXTREMITIES: Focused exam of the right upper extremity reveals normal flexion extension of the elbow and wrist. Patient unable to keep her right upper extremity in the air at the shoulder or lifted off the bed. Roports pain at the shoulder. She can however perform commands at the other joints. Normal strength in the left upper extremity and bilateral lower extremities. SKIN: Warm, dry, no rash. NEURO: Alert and oriented x1. CN II-XII intact. PSYCH: Normal mood and affect. Course Course Emergency Course: Patient is up and ambulatory without issue. She does not want to use right upper extremity at the shoulder. She is functional at each other joint. Suspect she may have a tear. She has been placed in a sling and will be referred to orthopedic surgery. Discussed this with patient's son had no additional questions. Vital Signs Vital signs: Vital Signs Temperature 98.6 F 03/29/21 16:42 Pulse Rate 75 03/29/21 16:42 Respiratory Rate 16 03/29/21 16:42 Blood Pressure 150/62 H 03/29/21 16:42 Pulse Oximetry 100 03/29/21 16:42 Temperature 98.6 F 03/29/21 16:42 Pulse Rate 78 03/29/21 19:59 Respiratory Rate 19 03/29/21 19:59 Blood Pressure 157/71 H 03/29/21 19:59 Pulse
[2021-03-29 21:52] VITALS: BP 138/74; PULSE 76; RESP 16; O2SAT 100
== END 2021-03-29 21:35 | disposition home or self-care (01) ==
LOC: ANHED 20:59
PROVIDERS: Emergency Provider Emergency Medicine; PCP Internal Medicine
DX: S46.001A Unspecified injury of muscle(s) and tendon(s) of the rotator cuff of right shoulder, initial encounter (principal); S00.81XA Abrasion of other part of head, initial encounter; F03.90 Unspecified dementia, unspecified severity, without behavioral disturbance, psychotic disturbance, mood disturbance, and anxiety; M19.90 Unspecified osteoarthritis, unspecified site; I10 Essential (primary) hypertension; E03.9 Hypothyroidism, unspecified; E11.9 Type 2 diabetes mellitus without complications; W19.XXXA Unspecified fall, initial encounter; Z86.73 Personal history of transient ischemic attack (TIA), and cerebral infarction without residual deficits; Z87.442 Personal history of urinary calculi; Z86.718 Personal history of other venous thrombosis and embolism
CPT/HCPCS: 70450; 72125; 73030; 73080; 73110; 99284; A4565